=== PATIENT | female | born 1965 | race Caucasian/White ===

== ENCOUNTER → 2023-02-01 | Outpatient (CLI) | payer BC ==
[~2023-02-01] MED LIST: LEVOFLOXACIN500 MG PO; VICODIN 500 MG-1 TAB PO
== END | disposition home or self-care (01) ==
LOC: RAD 15:10
PROVIDERS: ATTEND Nurse Practitioner Family
DX: R30.0 Dysuria (principal); R10.9 Unspecified abdominal pain